=== PATIENT | female | born 1990 | race Caucasian/White ===

== ENCOUNTER 2018-12-18 14:38 | Outpatient (CLI) | payer MEDICAID ==
[~2018-12-18] VITALS: Ht 167.6 cm; Wt 77.7 kg
[2018-12-18 14:45] VITALS: Ht 167.6 cm; Wt 77.7 kg
[2018-12-18 14:58] VITALS: BP 117/72; PULSE 97; RESP 18
[2018-12-18] MEDS ORDERED: PREN-99 PO (15:00)
[2018-12-18] MEDS ORDERED: FER325 PO (15:01)
[2018-12-18] MEDS ORDERED: LEVO137T3 PO (15:02)
--- NOTE | 2018-12-18 17:32 | TRIAGE ---
OB Triage Datetime Report Generated by CPN: 12/18/2018 17:32 Datetime: 12/18/2018 17:00 Labor Evaluation Frequency: x3 Monitor Mode: External Duration (sec)2399: 70-100 Quality: Mild Resting Tone [place]: Relaxed Contraction Comments: uretine irritabilty noted Heart Rate FHR Baseline Rate: 135 Monitor Mode: External US FHR Baseline Changes: No Baseline Change Variability: Moderate 6-25 bpm Accelerations: 15X15 Decelerations: None Category: Category I Datetime: 12/18/2018 15:58 Labor Evaluation Frequency: none Monitor Mode: External Resting Tone [place]: Relaxed Contraction Comments: uterine irritability noted Heart Rate FHR Baseline Rate: 140 Monitor Mode: External US FHR Baseline Changes: No Baseline Change Variability: Moderate 6-25 bpm Accelerations: 15X15 Decelerations: None Category: Category I Datetime: 12/18/2018 15:03 Stage of : OB Triage Assessment Type: Triage Maternal Assessment Level of Consciousness: Fully Conscious DTR's/Clonus: DTRs 2+; No Clonus Headache: Denies Blurred Vision: No Respiratory Effort: Unlabored; Regular Rhythm; Equal Expansion Breath Sounds, Left: Clear and Equal Breath Sounds, Right: Clear and Equal Nausea/Vomiting: Denies RUQ Epigastric Pain: Denies Lower Extremities Edema: None Degree: None Upper Extremities Edema: None Degree: None Facial Edema: None Temperature Route: Oral Fall Risk Assessment History of Falling: (0) No Secondary Diagnosis: (0) No Ambulatory Aid: (0) Bedrest/Nurse Assist IV Therapy: (0) No Gait: (0) Normal/Bedrest/Immobile Mental Status: (0) Oriented to Own Ability Fall Score: 0 Fall Risk Score Definition: No Risk: No action required Labor Evaluation Frequency: none Monitor Mode: External Resting Tone [place]: Relaxed Heart Rate FHR Baseline Rate: 135 Monitor Mode: External US FHR Baseline Changes: No Baseline Change Variability: Moderate 6-25 bpm Accelerations: 15X15 Decelerations: None Category: Category I Pain Assessment Pain Scale: 0 Pain Presence: None/Denies Pain Type: N/A Datetime: 12/18/2018 15:02 Time of Arrival: 12/18/2018 14:35 EGA: 37.6 Arrived By: Ambulatory Arrived From: Home Chief Complaint: pt has no complaints, looks for a doctor to start care. Pt had c are in [place] Movement: Present Contractions: Denies/Absent Rupture of Membranes: Denies Vaginal Bleeding: None Vaginal Discharge: Denies Recent Sexual Intercouse: Denies Abdominal Trauma: Not Applicable Patient Complaints: None Time Provider Notified: 12/18/2018 14:35 Provider Notified: Dr Townsend Initial Plan: LINDAT, BUZZ
--- NOTE | 2018-12-18 18:31 | PN ---
Triage Information Date/Time 12/18/1811/03/1812 Reason for visit: Abd/pelvic pain Weeks of Gestation 37w6d /Para Diabetes: none Hypertention: none Additional information hypothyroidism on levothyroxine 137mcg had P[facility] [place] no record is available Objective Vital Signs Date Temp Pulse Resp B/P (MAP) Pulse Ox O2 O2 Flow FiO2 Time Delivery Rate 12/18/18 99.3 97 18 117/72 Room Air 14:58 (87) Heart Rate: 140's Heart Rate Comments CAT I tracing Contractions: None Results/Medications Result Diagram: 12/18/18 1459 Results 24 hrs Laboratory Tests Test 12/18/18 14:55 12/18/18 14:59 Thyroid Stimulating Hormone (TSH) 0.050 L Free Thyroxine 1.14 Free Triiodothyronine (T3) pg/mL 2.71 L White Blood Count 7.0 Red Blood Count 3.77 L Hemoglobin 11.4 L Hematocrit 34.1 L Mean Corpuscular Volume 90.5 Mean Corpuscular Hemoglobin 30.2 Mean Corpuscular Hemoglobin Concent 33.4 Red Cell Distribution Width 13.4 Platelet Count 147 Mean Platelet Volume 11.8 H Immature Granulocytes % 0.600 H Neutrophils % 73.3 Lymphocytes % 16.2 Monocytes % 9.1 Eosinophils % 0.7 Basophils % 0.1 Nucleated Red Blood Cells % 0.0 Immature Granulocytes # 0.040 H Neutrophils # 5.1 Lymphocytes # 1.1 Monocytes # 0.6 Eosinophils # 0.1 Basophils # 0.0 Nucleated Red Blood Cells # 0.0 Hepatitis B Surface Antigen NEGATIVE HIV (1&2) Antibody NEGATIVE Imaging Results BPP 8 SALVADOR 14.4 EFW 3334gm Disposition: Discharge Assessment/Plan A IUP 37w6d NIL P discharge home with routine labor instructions f/u at my office JOSE LUIS HENDRIX MD December 18, 2018 18:23
== END 2018-12-18 17:25 | disposition home or self-care (01) ==
LOC: L-D 14:38 → OBT 14:38
PROVIDERS: ATTEND Obstetrics & Gynecology
DX: O26.893 Other specified pregnancy related conditions, third trimester (principal); Z3A.37 37 weeks gestation of pregnancy; R10.2 Pelvic and perineal pain
CPT/HCPCS: 76815; 76818; 84439; 84443; 84481; 85025; 86592; 86703; 86762; 86900; 86901; 87081; 87340; 87591; Z7500; G0463

== ENCOUNTER 2018-12-29 02:01 | Inpatient (IN) | payer MEDICAID ==
[~2018-12-29] VITALS: Ht 167.6 cm; Wt 77.7 kg
[~2018-12-29 02:01] MED LIST: FER325 PO; LEVO137T3 PO; PREN-99 PO
[2018-12-29] MEDS ORDERED: LACTATED RINGER'S 1,000 ML IV SCH (02:32)
[2018-12-29 02:58] VITALS: Ht 167.6 cm; Wt 77.7 kg
[2018-12-29] MEDS ORDERED: BUTORPHANOL 2 MG INJ IV PRN ×2 (03:00)
[2018-12-29] MEDS ORDERED: MISOPROSTOL 200 MCG TAB PR PRN ×2 (03:00→05:30)
[2018-12-29] MEDS ORDERED: METHYLERGONOVINE 0.2 MG INJ IM PRN ×2 (03:00→05:30)
[2018-12-29] MEDS ORDERED: AMPICILLIN 2 GM/NS (PMX) 100 ML IV ONE (03:00)
[2018-12-29] MEDS ORDERED: CARBOPROST 250 MCG INJ IM PRN ×2 (03:00→05:30)
[2018-12-29] MEDS ORDERED: IBUPROFEN 600 MG TAB PO PRN (03:00)
[2018-12-29] MEDS ORDERED: LIDOCAINE 1% (MPF) 30 ML INJ INJ PRN (03:00)
[2018-12-29] MEDS ORDERED: OXYTOCIN 30 UNITS/LR 500 ML IV SCH ×2 (03:00)
[2018-12-29] MEDS ORDERED: OXYTOCIN 30 UNITS/LR 500 ML IV PRN ×2 (03:00→05:30)
[2018-12-29 03:11] VITALS: BP 163/83; PULSE 79; RESP 20
--- NOTE | 2018-12-29 03:11 | TRIAGE ---
OB Triage Datetime Report Generated by CPN: 12/29/2018 03:11 Datetime: 12/29/2018 03:01 Membrane Status: Ruptured Membranes Rupture Method: Spontaneous Datetime: 12/29/2018 02:45 Vaginal Exam Dilatation (cms): 9.5 Effacement (%): 100 Station: 0 Membrane Status: Bulging Datetime: 12/29/2018 02:26 Stage of : Labor Assessment Type: Admission Assessment Vaginal Bleeding: None Maternal Assessment Level of Consciousness: Fully Conscious DTR's/Clonus: DTRs 2+; No Clonus Headache: Denies Blurred Vision: No Respiratory Effort: Unlabored; Regular Rhythm; Equal Expansion Breath Sounds, Left: Clear and Equal Breath Sounds, Right: Clear and Equal Nausea/Vomiting: Denies RUQ Epigastric Pain: Denies Lower Extremities Edema: None Degree: None Upper Extremities Edema: None Degree: None Facial Edema: None Fall Risk Assessment History of Falling: (0) No Secondary Diagnosis: (0) No Ambulatory Aid: (0) Bedrest/Nurse Assist IV Therapy: (20) Yes Gait: (0) Normal/Bedrest/Immobile Mental Status: (0) Oriented to Own Ability Fall Score: 20 Fall Risk Score Definition: No Risk: No action required Pain Assessment Pain Scale: 10 Pain Presence: Intermittent Pain Type: Contraction Pain Location: Abdomen; Back Pain Goal: 2 Membrane Status: Intact Datetime: 12/29/2018 02:25 Vaginal Exam Dilatation (cms): 7.5 Effacement (%): 100 Station: -1 Membrane Status: Intact Datetime: 12/29/2018 02:23 Stage of : OB Triage Assessment Type: Triage Time Provider Notified: 12/29/2018 02:10 Maternal Assessment Level of Consciousness: Fully Conscious DTR's/Clonus: DTRs 2+; No Clonus Headache: Denies Blurred Vision: No Respiratory Effort: Unlabored; Regular Rhythm; Equal Expansion Breath Sounds, Left: Clear and Equal Breath Sounds, Right: Clear and Equal Nausea/Vomiting: Denies RUQ Epigastric Pain: Denies Lower Extremities Edema: None Degree: None Upper Extremities Edema: None Degree: None Facial Edema: None Temperature Route: Oral Fall Risk Assessment History of Falling: (0) No Secondary Diagnosis: (0) No Ambulatory Aid: (0) Bedrest/Nurse Assist IV Therapy: (0) No Gait: (0) Normal/Bedrest/Immobile Mental Status: (0) Oriented to Own Ability Fall Score: 0 Fall Risk Score Definition: No Risk: No action required Labor Evaluation Monitor Mode: External Heart Rate Monitor Mode: External US Pain Assessment Pain Scale: 8 Pain Presence: Intermittent Pain Type: Contraction Pain Location: Abdomen; Back Pain Relief Measures: Comfort Measures Datetime: 12/29/2018 02:18 Time of Arrival: 12/29/2018 01:45 EGA: 39.3 Arrived By: Wheelchair Arrived From: Emergency Dept Movement: Present Contractions: Regular Time Contractions Began: 12/28/2018 21:00 Contractions: 2-3 Rupture of Membranes: Denies Vaginal Bleeding: None Vaginal Discharge: Denies Recent Sexual Intercouse: Denies Abdominal Trauma: Not Applicable Patient Complaints: Contractions Time Provider Notified: 12/29/2018 02:10 Provider Notified: RUMA Initial Plan: EFM, VS, SVE Datetime: 12/29/2018 02:15 Pain Assessment Pain Scale: 10 Pain Presence: Intermittent Pain Type: Contraction Pain Location: Abdomen; Back Pain Goal: 0 Pain Relief Measures: Comfort Measures Datetime: 12/18/2018 15:03 Fall Score: 0 Fall Risk Score Definition: No Risk: No action required Datetime: 12/18/2018 15:02 EGA: 37.6
--- NOTE | 2018-12-29 04:18 | HP ---
Date/Time of Note Date/Time of Note DATE: 12/29/18 TIME: 04:11 OB - History Hx of Present Free Text/Dictation 28y.o at 39w3d in active labor with intact membrane. Initial VE 7/100/-2 CAT I tracing limited care here,transferred [facility] where the [facility] was done GBS unknown ampicillin ffor unknown GBS admitted for expectant management. Chief Complaint: uc's Estimated Due Date: January 02, 2019 : 2 Para: 1 Spontaneous : 0 Therapeutic : 0 Care: Limited Care Ultrasounds: Other Obstetrical Complications: None Medical Complications: None Past Family/Social History * Past Medical, Surgical, Family and Obstetric Histories reviewed from chart. Blood Type: A+ Rubella: immune RPR/VDRL: Negative GBS Status: Unknown HBsAG: Negative OB Admission Exam Vital Signs Vital Signs Vital Signs Date Temp Pulse Resp B/P (MAP) Pulse Ox O2 O2 Flow FiO2 Time Delivery Rate 12/29/18 98.2 79 20 163/83 98 Room Air 03:11 (109) Physical Exam HEENT: WNL Heart: Rhythm Normal Lungs: Clear, Equal Abdomen: WNL Extremities: Normal Reflexes: Normal Cervical Dilatation: 7cm Effacement: 100% Station: -2 Membranes: Intact Amniotic Fluid: Unevaluable Heart Rate: 140's Accelerations: Accelerations Present Decelerations: No Decelerations Varibility: Moderate Contractions on Admission: < 5 Minutes Apart Intensity: Firm Last 72 hours Lab Results CBC & BMP 12/29/18 02:45 OB Assessment/Plan Reason for admission: active labor Other Assessment: IUP 39w3d Plan: Expectant Management JOSE LUIS HENDRIX MD December 29, 2018 04:18
--- NOTE | 2018-12-29 04:20 | LDN ---
Date/Time of Note Date/Time of Note DATE: 12/29/18 TIME: 04:18 Delivery Summary of normal male Weeks of Gestation 39w3d Placenta Delivered: Spontaneously, Intact & Complete Meconium: none Episiotomy: No Perineal laceration: 1 Laceration repair: 000ch gut Anesthesia type: Local Estimated blood loss: 100 Sponge & Needle done & correct: Yes All needle counts correct: Yes Any foreign bodies felt in the: No Infant Delivery Information Sex Sex: male Apgars 1 Minute: 9 5 Minute: 9 Suctioning Nose & mouth suctioned at jayesh: Yes Delee suction performed: No Umbilical Cord Umbilical cord with: 3 Vessels Cord presentations: no nuchal cord Cord Blood was obtained: Yes Mother & Baby Disposition Disposition Mom & Baby to Maternity; Good: Yes Mom transferred to: Other Baby to NICU: No () JOSE LUIS HENDRIX MD December 29, 2018 04:20
[2018-12-29] MEDS ORDERED: MINERAL OIL LIGHT 10 ML VIAL TOP STA (04:50)
[2018-12-29 05:30] VITALS: BP 127/74; PULSE 60; RESP 17
[2018-12-29] MEDS ORDERED: ZOLPIDEM 5 MG TAB PO PRN (05:30)
[2018-12-29] MEDS ORDERED: OXYCODONE/ASPIRIN (4.88/325) TAB PO PRN ×2 (05:30)
[2018-12-29] MEDS: WITCH HAZEL/GLYCERIN PAD PR PRN (05:53)
[2018-12-29] MEDS: BENZOCAINE 20% 56 ML SPRAY TOP PRN (05:53)
[2018-12-29] MEDS: LANOLIN HPA 1 PKT TOP PRN (05:53)
[2018-12-29] MEDS: IBUPROFEN 600 MG TAB PO SCH ×3 (05:54→17:53)
[2018-12-29] MEDS ORDERED: AMPICILLIN 1 GM/NS (PMX) 50 ML IV SCH (07:00)
[2018-12-29 08:00] VITALS: BP 125/75; PULSE 75; RESP 20
[2018-12-29] MEDS: LEVOTHYROXINE 137 MCG TAB PO SCH (09:41)
[2018-12-29] MEDS: SENNA/DOCUSATE NA (8.6MG/50MG) TAB PO SCH ×2 (09:41→21:19)
[2018-12-29 11:45] VITALS: BP 126/71; PULSE 79; RESP 18
[2018-12-29 15:50] VITALS: BP 117/73; PULSE 75; RESP 18
[2018-12-29 20:00] VITALS: BP 108/71; PULSE 72; RESP 17
[2018-12-30] VITALS: BP 115/75; PULSE 78; RESP 19
[2018-12-30] MEDS: IBUPROFEN 600 MG TAB PO SCH ×4 (00:16→18:00)
[2018-12-30 04:00] VITALS: BP 92/49; PULSE 70; RESP 18
[2018-12-30] MEDS: LEVOTHYROXINE 137 MCG TAB PO SCH (05:35)
[2018-12-30] MEDS: LANOLIN HPA 1 PKT TOP PRN ×3 (05:36→22:29)
[2018-12-30] MEDS ORDERED: LEVOTHYROXINE 137 MCG TAB PO SCH (06:00)
[2018-12-30 09:18] VITALS: BP 103/58; PULSE 75; RESP 18
[2018-12-30] MEDS: SENNA/DOCUSATE NA (8.6MG/50MG) TAB PO SCH ×2 (10:13→22:29)
[2018-12-30 16:00] VITALS: BP 110/65; PULSE 69; RESP 19
--- NOTE | 2018-12-30 20:04 | QN ---
Documentation Comment no c/o vss afebrile fundus firm lochia min calf neg stable post P discharge in am JOSE LUIS HENDRIX MD December 30, 2018 20:04
[2018-12-30 20:50] VITALS: BP 112/69; PULSE 73; RESP 19
[2018-12-31] MEDS: IBUPROFEN 600 MG TAB PO SCH ×3 (00:06→11:48)
[2018-12-31 04:00] VITALS: BP 102/58; PULSE 62; RESP 18
[2018-12-31] MEDS: LEVOTHYROXINE 137 MCG TAB PO SCH (06:46)
[2018-12-31 07:50] VITALS: BP 111/74; PULSE 62; RESP 16
[2018-12-31] MEDS: SENNA/DOCUSATE NA (8.6MG/50MG) TAB PO SCH (08:58)
[2018-12-31] MEDS ORDERED: DIPHTH/TET/ACEL PERTUSS (ADULT) 0.5 ML VIAL IM* ONE (09:00)
[2018-12-31] MEDS: BENZOCAINE 20% 56 ML SPRAY TOP PRN (10:50)
[2018-12-31] MEDS: WITCH HAZEL/GLYCERIN PAD PR PRN (10:50)
[2018-12-31] MEDS: LANOLIN HPA 1 PKT TOP PRN (10:50)
--- NOTE | 2018-12-31 13:52 | PD.PPDC ---
RETORT COOLER Discharge Instruction Diagnosis [id number] Final Diagnosis: Gbpct3c s/p Condition [id number] Patient Condition: Ziufq7l Stable Diet Xynmo8Sf Diet: Pqsbu4b Resume Regular Diet Activity/Restrictions Majoe5Up Activity: Ifppq7e May Shower Tvdpe6Wc Restrictions: [id number] No Lifting No Sexual Activity Nothing in the Vagina No Wiggins No Tampons, douche Follow-up Follow-up with Physician: 2, Week/Weeks Return to clinic for Lyzmu7Yx [employer]ING [employer]TER Instructions: Xagwi6t Fever greater than 101 Chills Worsening abdominal pain Excessive Vaginal Bleeding More than 2 pads per hour Unable to tolerate diet Lhbfh6Hc OB Instructions: Tiwos9i Breast Tenderness Depression Blurried Vision Headache Emxap4Wc Surgical Instructions: Taezx2v Incisional Drainage Incisional Redness JOSE LUIS HENDRIX MD December 31, 2018 13:52
--- NOTE | 2018-12-31 13:54 | DS ---
Date/Time of Note Date/Time of Note DATE: 12/31/18 TIME: 13:53 Obstetrical Discharge Record Final Diagnosis Final Diagnosis: Term delivered Vaginal Delivery Obstetrical Delivery: Spontaneous, Laceration, Repaired Complications Augmentation: No Induction: No Rupture of Membranes: No Condition on Discharge Physical Assessment Last Vitals: vss afebrile Voiding: Yes Bowel Movement: Yes Breast: Soft, non-tender Fundus: Firm Calf Tenderness: No Patient Condition: Stable JOSE LUIS HENDRIX MD December 31, 2018 13:54
--- NOTE | 2019-01-01 14:51 | DELSUM ---
Delivery Summary A-C Datetime Report Generated by CPN: 01/01/2019 14:50 DELIVERY PERSONNEL Mint Wafer Depositor: [place], Faith MATERNAL INFORMATION Delivery Anesthesia: Local Medications in Delivery: LR WITH 30 UNITS OF PITOCIN Delivery QBL (ml): 100 Placenta Cultured: No Maternal Complications: None LABOR SUMMARY EDC: 01/02/2019 00:00 No. Babies in Womb: 1 Attempted: No Labor Anesthesia: None LABOR INFORMATION Reason for Induction: Not Applicable Onset of Labor: 12/28/2018 21:00 Complete Dilatation: 12/29/2018 03:01 Oxytocin: N/A Group B Beta Strep: Negative Antibiotics # of Doses: 0 Steroids Given: None Reason Steroids Not Administered: Not Applicable MEMBRANES Membranes Rupture Method: Spontaneous Rupture of Membranes: 12/29/2018 03:01 Length of Rupture (hr): 0.18 Amniotic Fluid Color: Clear Amniotic Fluid Amount: Moderate Amniotic Fluid Odor: Normal STAGES OF LABOR Stage 1 hr: 6 Stage 1 min: 1 Stage 2 hr: 0 Stage 2 min: 11 Stage 3 hr: 0 Stage 3 min: 11 Total Time in Labor hr: 6 Total Time in Labor min: 23 VAGINAL DELIVERY Episiotomy: None Laceration Extension: First Degree Laceration Type: Perineal Laceration Repair: Yes Initial Vag Sponge Count: 10 Final Vag Sponge Count: 10 Initial Vag Sharps Count: 1 Final Vag Sharps Count: 2 BABY A INFORMATION Infant Delivery Date/Time: 12/29/2018 03:12 Method of Delivery: Vaginal Born in Route : No : N/A Forceps: N/A Vacuum Extraction: N/A Shoulder Dystocia : No SHOULDER DYSTOCIA BABY A Infant Delivery Date/Time: 12/29/2018 03:12 PRESENTATION/POSITION BABY A Presentation: Cephalic Cephalic Presentation: Vertex Vertex Position: Right Occipital Anterior Breech Presentation: N/A PLACENTA INFORMATION BABY A Placenta Delivery Time : 12/29/2018 03:23 Placenta Method of Delivery: Spontaneous Placenta Status: Delivered SCORES BABY A Heart Rate 1 min: >100 bpm Resp Effort 1 min: Good Cry Reflex Irritability 1 min: Cough/Sneeze/Pulls Away Muscle Tone 1 min: Active Motion Color 1 min: Blue/Pale Resuscitation Effort 1 min: Tactile Stimulation SCORE 1 MIN: 8 Heart Rate 5 min: >100 bpm Resp Effort 5 min: Good Cry Reflex Irritability 5 min: Cough/Sneeze/Pulls Away Muscle Tone 5 min: Active Motion Color 5 min: Body [place], Extremit Blue Resuscitation Effort 5 min: Tactile Stimulation SCORE 5 MIN: 9 INFORMATION BABY A Gestational Age at Delivery: 39.3 Gestational Status: Full Term- 39- 40.6 Weeks Infant Outcome : Liveborn Condition : Stable Sex: Male IDENTIFICATION/MEDS BABY A ID Band Number: [id number] ID Band Location: Right Leg; Left Arm Sensor Applied: Yes Sensor Number: [id number] Sensor Location : Cord Clamp Vitamin K Given : Not Given Erythromycin Given: Not Given WEIGHT/LENGTH BABY A Birthweight (gm): 4000 Weight (lb): 8 Weight (oz): 13 Length (in): 20.00 Length (cm): 50.80 CORD INFORMATION BABY A No. Cord Vessels: 3 Nuchal Cord : N/A Cord Blood Taken: Yes Infant Suction: Mouth; Nose ASSESSMENT BABY A Infant Complications: None Physical Findings at Delivery: Bruising Infant Respirations: Appears Normal Head Batcher/ALS Called : No Infant Care By: HERNESTO SCHROEDER Transferred To: Remains with Mother
== END 2018-12-31 14:00 | disposition home or self-care (01) | DRG 807 ==
LOC: OBT 02:01 → L-D 02:01 → OBT 02:10 → L-D 02:10 → PP1 05:16
PROVIDERS: ADMIT Obstetrics & Gynecology; ATTEND Obstetrics & Gynecology
PROC: 10E0XZZ Delivery of Products of Conception, External Approach (ICD-10-PCS; principal; 2018-12-29)
PROC: 0HQ9XZZ Repair Perineum Skin, External Approach (ICD-10-PCS; 2018-12-29)
DX: O70.9 Perineal laceration during delivery, unspecified (principal); Z37.0 Single live birth; Z3A.39 39 weeks gestation of pregnancy
CPT/HCPCS: 85025; 85610; 85730; 86592; 86850; 86900; 86901; 90715; G0463; J2590; J7120